=== PATIENT | female | born 1950 | race Caucasian/White ===

== ENCOUNTER 2018-01-13 12:37 | Outpatient (CLI) | payer MEDICARE, OTHER ==
[~2018-01-13 12:37] MED LIST: ALBU8.5H8 IH; BECL8.7A5 IH; CILO100T PO; CLON0.1T PO; CLON0.1T14 PO; DIAZ5TAB PO; DILT-1 PO; ISOS40TA12 PO; METF500T6 PO; NITR0.3T SL; OLME1TAB22 PO; PANT40VI IV; PRAV40TA3 PO
== END 2018-01-13 23:59 | disposition home health service (06) ==
LOC: WOU 12:37
PROVIDERS: ATTEND Podiatrist Foot & Ankle Surgery
DX: I87.2 Venous insufficiency (chronic) (peripheral) (principal); R60.0 Localized edema; L97.819 Non-pressure chronic ulcer of other part of right lower leg with unspecified severity; Z79.84 Long term (current) use of oral hypoglycemic drugs; F41.0 Panic disorder [episodic paroxysmal anxiety]; I10 Essential (primary) hypertension; Z83.3 Family history of diabetes mellitus; Z82.49 Family history of ischemic heart disease and other diseases of the circulatory system
CPT/HCPCS: A6402; G0463; Z7610